=== PATIENT | female | born 1930 | race Caucasian/White ===

== ENCOUNTER → 2017-03-02 | Outpatient (CLI) | payer OTHER ==
--- NOTE | 2017-03-02 15:48 | KCIC ---
Indication: Left leg swelling. Grayscale, color-flow and duplex Doppler evaluation of the left lower extremity deep venous system was performed. FINDINGS: There is no evidence of a left lower extremity DVT. The left lower extremity venous system demonstrates normal compressibility with normal response to augmentation and Valsalva. No soft tissue fluid collections are identified. IMPRESSION: No evidence of left lower extremity DVT. Electronically signed by: Fili Lopes MD (03/02/2017 3:44 PM) [id number]
== END | disposition home or self-care (01) ==
LOC: KCIC US 14:44
PROVIDERS: ATTEND Family Medicine
DX: M79.89 Other specified soft tissue disorders (principal)
CPT/HCPCS: 93971

== ENCOUNTER → 2017-06-20 | Outpatient (CLI) | payer OTHER ==
--- NOTE | 2017-06-20 12:43 | CARD ---
APPROVED REPORT EXAM: Two-dimensional and M-mode echocardiogram with Doppler and color Doppler. Other Information Quality : Good INDICATION Murmur 2D DIMENSIONS Left Atrium(2D)3.2 (1.6-4.0cm)IVSd1.3 (0.7-1.1cm) Aortic Root(2D)3.0 (2.0-3.7cm)LVDd3.7 (3.9-5.9cm) PWd1.1 (0.7-1.1cm)LVDs2.5 (2.5-4.0cm) FS (%) 31.4 %SV34.7 ml LVEF(%)60.1 (>50%) Aortic Valve AoV Peak Kapil.136.2cm/sAoV VTI32.8cm AO Peak GR.7.4mmHgLVOT Peak Kapil.132.5cm/s AO Mean GR.5mmHgAVA (VTI)3.10cm2 Mitral Valve MV E Woojtuth24.3cm/sMV DECEL [id number] MV A Armjnntl947.9cm/sE/A Ratio0.6 Tricuspid Valve TR P. Dpwneala130hi/sRAP [id number] TR Peak Gr.18cuAtLNEQ37siSx LEFT VENTRICLE The left ventricle is normal size. There is mild to moderate concentric left ventricular hypertrophy. Left ventricle systolic function is normal. The Ejection Fraction is 55-60%. There is normal LV segm ental wall motion. Transmitral Doppler flow pattern is normal for age. Transmitral Doppler flow patte rn is Grade I-abnormal relaxation pattern. RIGHT VENTRICLE The right ventricle is normal size. The right ventricular systolic function is normal. ATRIA The left atrium size is normal. The right atrium size is normal. The interatrial septum is intact wit h no evidence for an atrial septal defect or patent foramen ovale as noted on 2-D or Doppler imaging. AORTIC VALVE The aortic valve is mildly thickened but opens well. Doppler and Color Flow revealed no significant a ortic regurgitation. There is no significant aortic valvular stenosis. MITRAL VALVE The mitral valve is calcified but opens well. There is no evidence of mitral valve prolapse. There is no mitral valve stenosis. Doppler and Color Flow revealed no mitral valve regurgitation noted. TRICUSPID VALVE The tricuspid valve is normal in structure and function. Doppler and Color Flow revealed mild tricusp id regurgitation. There is mild pulmonary hypertension. The PA pressure was estimated at 32 mmHg. The re is no tricuspid valve prolapse or vegetation. There is no tricuspid valve stenosis. PULMONIC VALVE The pulmonary valve is normal in structure and function. Doppler and Color Flow revealed no pulmonic valvular regurgitation. There is no pulmonic valvular stenosis. GREAT VESSELS The aortic root is normal in size. The ascending aorta is normal in size. The IVC is normal in size a nd collapses >50% with inspiration. PERICARDIAL EFFUSION There is no pleural effusion. There is no evidence of significant pericardial effusion. Critical Notification Critical Value: No <Conclusion> Left ventricle systolic function is normal. The Ejection Fraction is 55-60%. There is normal LV segmental wall motion. Transmitral Doppler flow pattern is Grade I-abnormal relaxation pattern. Doppler and Color Flow revealed mild tricuspid regurgitation. The PA pressure was estimated at 32 mmHg. There is no evidence of significant pericardial effusion.
--- NOTE | 2017-06-21 15:05 | RAD ---
APPROVED REPORT Patient Location : OUT-PATIENT Indications Lower Extremity Edema : Left Left Ankle Edema Deep System Deep Venous Thrombosis present : No Deep Venous Reflux present : No Lesser Saphenous Veins (LSV) Leftt Thigh extension noted : YeS Leftt Giacomini Vein : Present : No Accessory Veins Leftt Anterior Accessory Vein : Present : No Left Posterior Accessory Vein : Present : No Findings Grayscale images of the left saphenofemoral junction and proximal and mid superficial femoral vein do not reveal any evidence of thrombus on razo scale images. The left great saphenous vein from the groin to the ankle does not demonstrate any significant eviden ce of reflux. The left lesser saphenous vein also does not show any evidence of significant reflux. Critical Notification Critical Value: No <Conclusion> 1. No evidence of reflux in the left greater and lesser saphenous veins.
== END | disposition home or self-care (01) ==
LOC: US 08:22
PROVIDERS: ATTEND Internal Medicine Cardiovascular Disease
DX: I07.1 Rheumatic tricuspid insufficiency (principal); I27.20 Pulmonary hypertension, unspecified; R60.0 Localized edema; R01.1 Cardiac murmur, unspecified
CPT/HCPCS: 93306; 93971

== ENCOUNTER 2017-08-19 12:11 | Emergency (ER) | payer OTHER | END 2017-08-19 13:25 | disposition home or self-care (01) | LOC: ER 12:11 | DX: S89.92XA Unspecified injury of left lower leg, initial encounter (principal); W01.198A Fall on same level from slipping, tripping and stumbling with subsequent striking against other object, initial encounter; Y93.89 Activity, other specified; Y92.59 Other trade areas as the place of occurrence of the external cause; Y99.8 Other external cause status | CPT/HCPCS: 73562; 99284 ==